=== PATIENT | female | born 1935 | race American Indian/Alaskan Native ===

== ENCOUNTER 2020-03-30 00:56 | Observation (INO) | payer MEDICARE ==
--- NOTE | 2020-03-30 01:40 | Emergency Department Report ---
HPI - General Chief Complaint: Altered Mental Status Time Seen by Provider: 03/30/20 01:10 - HPI HPI: This is an 85-year-old -Colomb[place] female presents to the emergency department via EMS from home with complaint of altered mental status. The patie nt has a history of hypertension, high cholesterol, previous breast cancer, and has Alzheimer's dementia. The patient is a poor historian and much of the information has been obtained by the patient's daughter, who is at bedside. The patient is usually AAO x1-2, but conversive. She does ambulate with a walker. Throughout most of the day the patient has been more fatigued and has been refusing to get out of bed. Lunch was brought her into her room, because she refused to come out to eat, but she just nibbled on some of the bread from the sandwich provided. She refused to come out for dinner as well but they eventually made her, and assisted her, to come out for dinner. While sitting at the dinner table the patient ate very little and appeared to slump over in her chair. At around 11 PM this evening another family member felt that she was even less responsive and EMS/911 was called. Patient did not receive any treatment for symptoms prior to presentation today. No sick contacts at home. Patient follows up with [facility] for primary care. ED Past Medical Hx - Past Medical History Previous Medical History?: Yes Hx Hypertension: Yes Hx of Cancer: Yes (Bilateral Breast Cancer) Hx Dementia: Yes Additional medical history: Brain Tumor, Bilateral Breast cancer 2013 and 2015 - Surgical History Past Surgical History?: Yes Additional Surgical History: Brain Tumor - Social History Smoking Status: Former Smoker - Medications Home Medications: Home Medications Medication Instructions Recorded Confirmed Last Taken Type Aspirin [Aspirin BABY CHEW TAB] 81 mg PO QDAY 03/30/20 03/30/20 Unknown History AtorvaSTATin [Lipitor] 40 mg PO QHS 03/30/20 03/30/20 Unknown History Letrozole (Nf) [Femara (Nf)] 2.5 mg PO QDAY 03/30/20 03/30/20 Unknown History Triamter/Hctz 37.5-25 mg 1 tab PO QDAY 03/30/20 03/30/20 Unknown History [Maxzide-25] ED Review of Systems ROS: Stated complaint: AMS Other details as noted in HPI Comment: Unobtainable due to pts medical conditions Physical Exam - Physical Exam Vital Signs: Vital Signs 03/30/20 01:18 Pulse Rate 81 Respiratory 20 Rate Blood Pressure 133/77 O2 Sat by Pulse 98 Oximetry Physical Exam: GENERAL: The patient is well-developed well-nourished. HENT: Normocephalic. Atraumatic. Patient has moist mucous membranes. EYES: Extraocular motions are intact. NECK: Supple. Trachea is midline. CHEST/LUNGS: Clear to auscultation. There is no respiratory distress noted. HEART/CARDIOVASCULAR: Regular. There is no tachycardia. There is no murmur. ABDOMEN: Abdomen is soft, nontender. Patient has normal bowel sounds. SKIN: Skin is warm and dry. NEURO: Patient is sleeping but is easily arousable. Once awake she is confused, AAO x 0. Unable to give me her name. Follows some commands. Withdraws from painful stimuli. MUSCULOSKELETAL: There is no tenderness or deformity. There is no limitation range of motion. ED Course Vital Signs 03/30/20 01:18 Pulse Rate 81 Respiratory 20 Rate Blood Pressure 133/77 O2 Sat by Pulse 98 Oximetry ED Medical Decision Making - Lab Data Result diagrams: 03/30/20 01:43 03/30/20 01:43 - EKG Data -: EKG Interpreted by Sd EKG shows normal: sinus rhythm, axis, intervals, QRS complexes, ST-T waves Rate: normal - EKG Data When compared to previous EKG there are: previous EKG unavailable Interpretation: normal EKG - Radiology Data Radiology results: report reviewed CT HEAD WITHOUT CONTRAST INDICATION: Altered mental status TECHNIQUE: Axial slices were obtained through the head. Coronal and sagittal reformatted images were obtained. COMPARISON: None available. FINDINGS: There is no intracranial hemorrhage or extra-axial fluid collection. There is deep cortical and cerebellar atrophy. There is no mass lesion or midline shift. No acute territorial infarct is identified. There is been prior right craniotomy Bone windows demonstrate no acute osseous abnormality. Paranasal sinuses and mastoid air cells appear clear. TECHNIQUE: All CT scans at this facility use dose modulation, iterative reconstruction, automated exposure control, weight based dosing, when appropriate, to reduce radiation dose to as low as reasonably achie vable. IMPRESSION: 1. No acute intracranial abnormality. 2. There is atrophy. There has been prior right craniotomy. - Medical Decision Making Family says that this patient has been increasingly lethargic throughout the day. She was arousable but did not want to leave her bed and had to be coaxed into eating and drinking and into her activities of daily living. At one point at dinner the patient was found slumped over but was once again arousable. Shortly afterwards the patient appeared unresponsive and EMS was called. Upon arrival to the emergency department the patient is sleeping but is arousable. However, once awake, the patient is confused, AAO x0. CT scan of the head without contrast does not show any acute process including any ischemia or large territorial infarct. Patient's labs shows a urinary tract infection and acute renal failure. Creatinine is 1.8 but the GFR is close to 30. No previous labs at our hospital, but her daughter did not mention any chronic kidney disease. Patient was given some IV fluid resuscitation and a dose of IV insulin for her urinary tract infection. She will be admitted to the hospital for further evaluation and treatment was accepted for admission by the hospitalist, Dr. Blum. Critical Care Time: No Critical care attestation.: If time is entered above; I have spent that time in minutes in the direct care of this critically ill patient, excluding procedure time. ED Disposition Clinical Impression: Altered mental status Qualifiers: Altered mental status type: unspecified Qualified Code(s): R41.82 - Altered mental status, unspecified Acute renal failure Qualifiers: Acute renal failure type: unspecified Qualified Code(s): N17.9 - Acute kidney failure, unspecified UTI (urinary tract infection) Qualifiers: Urinary tract infection type: acute cystitis Hematuria presence: without hematuria Qualified Code(s): N30.00 - Acute cystitis without hematuria Disposition: OP ADMIT IP TO THIS HOSP Is pt being admited?: Yes Condition: Fair Referrals: PRIMARY CARE, [Primary Care Provider] - 3-5 Days Time of Disposition: 04:26
[2020-03-30 02:18] LABS: Basophils # (Auto) 0.1 K/mm3 (0.0-0.1); Basophils % (Auto) 0.7 % (0.0-1.8); Eosinophils % (Auto) 0.2 % (0.0-4.3); Hematocrit 40.2 % (30.3-42.9); Hemoglobin 12.6 gm/dl (10.1-14.3); Lymphocytes # (Auto) 1.9 K/mm3 (1.2-5.4); Lymphocytes % (Auto) 16.1 % (13.4-35.0); Mean Corpuscular HGB Conc 31 % (30-34); Monocytes # (Auto) 0.9 K/mm3 (0.0-0.8); Monocytes % (Auto) 7.9 % (0.0-7.3); Platelet Count 331 K/mm3 (140-440); Red Blood Count 5.83 M/mm3 (3.65-5.03); Red Cell Distribution Width 15.9 % (13.2-15.2)
--- NOTE | 2020-03-30 02:19 | Cat Scan Report ---
CT HEAD WITHOUT CONTRAST INDICATION: Altered mental status TECHNIQUE: Axial slices were obtained through the head. Coronal and sagittal reformatted images were obtained. COMPARISON: None available. FINDINGS: There is no intracranial hemorrhage or extra-axial fluid collection. There is deep cortical and cereb ellar atrophy. There is no mass lesion or midline shift. No acute territorial infarct is identified. There is been prior right craniotomy Bone windows demonstrate no acute osseous abnormality. Paranasal sinuses and mastoid air cells appear clear. TECHNIQUE: All CT scans at this facility use dose modulation, iterative reconstruction, automated ex posure control, weight based dosing, when appropriate, to reduce radiation dose to as low as reasonab ly achievable. IMPRESSION: 1. No acute intracranial abnormality. 2. There is atrophy. There has been prior right craniotomy. Signer Name: Saroj Rodriguez MD Signed: 03/30/2020 2:14 AM Workstation Name: [id number]
[2020-03-30 02:22] LABS: Mean Corpuscular Volume 69 fl (79-97)
[2020-03-30 02:45] LABS: Alanine Aminotransferase 8 units/L (7-56); Albumin 3.7 g/dL (3.9-5); BUN/Creatinine Ratio 16; Blood Urea Nitrogen 28 mg/dL (7-17); Calcium 9.2 mg/dL (8.4-10.2); Hemolysis Index 8
[2020-03-30 02:46] LABS: INR 1.02 (0.87-1.13)
[2020-03-30 02:51] LABS: Amphetamine Screen,Urine PRESUMPTIVE NEGATIVE; Benzodiazepines Screen,Urine PRESUMPTIVE NEGATIVE; Cannabinoid Screen,Urine PRESUMPTIVE NEGATIVE; Cocaine Screen,Urine PRESUMPTIVE NEGATIVE; Methadone Screen,Urine PRESUMPTIVE NEGATIVE; Opiate Screen,Urine PRESUMPTIVE NEGATIVE
[2020-03-30 03:15] LABS: Bacteria,Urine 4+ /HPF (Negative); Bilirubin,Urine NEG (Negative); Blood,Urine SM (Negative); Color,Urine Yellow (Yellow); Mucus,Urine FEW /HPF
[2020-03-30] MEDS ORDERED: cefTRIAXone/NS 1 GM/50 ML 1 GM/50 ML BAG IV ONE (03:23)
[2020-03-30] MEDS ORDERED: SODIUM CHLORIDE 0.9% 500 ML 500 ML IV ONE (03:23)
[2020-03-30] MEDS ORDERED: MAGNESIUM HYDROXIDE (MOM) ORAL LIQD UDC PO PRN (04:51)
[2020-03-30] MEDS ORDERED: ONDANSETRON 4 MG/2 ML INJ IV PRN (04:51)
[2020-03-30] MEDS ORDERED: ACETAMINOPHEN 325 MG TAB PO PRN (04:51)
[2020-03-30] MEDS ORDERED: SODIUM CHLORIDE 0.9% 1000 ML 1,000 ML IV SCH (05:00)
--- NOTE | 2020-03-30 05:00 | History and Physical Report ---
History of Present Illness Date of examination: 03/30/20 Date of admission: 03/30/2020 Chief complaint: Altered Mental Status History of present illness: 85-year-old -Macanese female with known history of dementia, breast cancer, hyperlipidemia and hypertension was brought into the emergency room today for altered mental status. Patient is a poor historian and most of the information was obtained from the emergency room physician as family members were not available. Patient was said to have had decreased oral intake lately. She was said to have appeared slumped over on a chair sometime this evening and became less responsive and thereafter EMS was called. There has been no history of any illness prior to current symptoms. There has been no history of travel. Work-up in the emergency room today shows urinary tract infection on the urinalysis. BUN and creatinine was also elevated. CT scan of the head was unremarkable. Patient is being admitted for UTI, altered mental status and acute kidney injury. Past History Past Medical History: hypertension, hyperlipidemia, other (Dementia,H/O Breast ca,h/O Brain tumor.) Past Surgical History: Other (Jhonny. Mastetctomy) Social history: smoking (Former smoker) Family history: no significant family history Medications and Allergies Allergies Allergy/AdvReac Type Severity Reaction Status Date / Time No Known Allergies Allergy Unverified 03/30/20 01:08 Home Medications Medication Instructions Recorded Confirmed Last Taken Type Aspirin [Aspirin BABY CHEW TAB] 81 mg PO QDAY 03/30/20 03/30/20 Unknown History AtorvaSTATin [Lipitor] 40 mg PO QHS 03/30/20 03/30/20 Unknown History Letrozole (Nf) [Femara (Nf)] 2.5 mg PO QDAY 03/30/20 03/30/20 Unknown History Triamter/Hctz 37.5-25 mg 1 tab PO QDAY 03/30/20 03/30/20 Unknown History [Maxzide-25] Active Meds: Active Medications Acetaminophen (Tylenol) 650 mg PO Q4H PRN PRN Reason: Pain MILD(1-3)/Fever >100.5/VILLANUEVA Heparin Sodium (Porcine) (Heparin) 5,000 unit SUB-Q Q8HR YOLANDA Sodium Chloride (Nacl 0.9% 1000 Ml) 1,000 mls @ 125 mls/hr IV DIRECT YOLANDA Magnesium Hydroxide (Milk Of Magnesia) 30 ml PO Q4H PRN PRN Reason: Constipation Ondansetron HCl (Zofran) 4 mg IV Q8H PRN PRN Reason: Nausea And Vomiting Sodium Chloride (Sodium Chloride Flush Syringe 10 Ml) 10 ml IV BID YOLANDA Sodium Chloride (Sodium Chloride Flush Syringe 10 Ml) 10 ml IV PRN PRN PRN Reason: LINE FLUSH Review of Systems ROS unobtainable: due to mental status Exam - Constitutional Vitals: Temp Pulse Resp BP Pulse Ox 97.6 F 79 20 143/79 98 03/30/20 01:30 03/30/20 03:43 03/30/20 03:43 03/30/20 03:43 03/30/20 03:43 General appearance: Present: no acute distress, well-nourished - EENT Eyes: Present: PERRL, EOM intact. Absent: scleral icterus ENT: hearing intact, clear oral mucosa, dentition normal - Neck Neck: Present: supple, normal ROM - Respiratory Respiratory effort: normal Respiratory: bilateral: CTA - Cardiovascular Rhythm: regular Heart Sounds: Present: S1 & S2. Absent: gallop, systolic murmur, diastolic murmur, rub - Extremities Extremities: no ischemia, pulses intact, pulses symmetrical, No edema, Full ROM Peripheral Pulses: within normal limits - Abdominal General gastrointestinal: Present: soft, non-tender, non-distended, normal bowel sounds, mass - Integumentary Integumentary: Present: clear, warm, dry - Musculoskeletal Musculoskeletal: strength equal bilaterally - Psychiatric Psychiatric: cooperative - Neurologic Neurologic: CNII-XII intact, no focal deficits, moves all extremities HEART Score - HEART Score Troponin: Troponin T < 0.010 ng/mL (0.00-0.029) 03/30/20 01:43 Results - Labs CBC & Chem 7: 03/30/20 01:43 03/30/20 01:43 Labs: Abnormal lab results 03/30/20 03/30/20 03/30/20 Range/Units 01:43 01:43 01:43 WBC 11.8 H (4.5-11.0) K/mm3 RBC 5.83 H (3.65-5.03) M/mm3 MCV 69 L (79-97) fl MCH 22 L (28-32) pg RDW 15.9 H (13.2-15.2) % Pratt % (Auto) 7.9 H (0.0-7.3) % Pratt # (Auto) 0.9 H (0.0-0.8) K/mm3 Seg Neutrophils % 75.1 H (40.0-70.0) % Seg Neutrophils # 8.8 H (1.8-7.7) K/mm3 Sodium 136 L (137-145) mmol/L Carbon Dioxide 20 L (22-30) mmol/L BUN 28 H (7-17) mg/dL Creatinine 1.8 H (0.6-1.2) mg/dL Glucose 123 H (65-100) mg/dL Ammonia 14.0 L (25-60) umol/L Albumin 3.7 L (3.9-5) g/dL Urine WBC (Auto) (0.0-6.0) /HPF 03/30/20 Range/Units 02:09 WBC (4.5-11.0) K/mm3 RBC (3.65-5.03) M/mm3 MCV (79-97) fl MCH (28-32) pg RDW (13.2-15.2) % Pratt % (Auto) (0.0-7.3) % Pratt # (Auto) (0.0-0.8) K/mm3 Seg Neutrophils % (40.0-70.0) % Seg Neutrophils # (1.8-7.7) K/mm3 Sodium (137-145) mmol/L Carbon Dioxide (22-30) mmol/L BUN (7-17) mg/dL Creatinine (0.6-1.2) mg/dL Glucose (65-100) mg/dL Ammonia (25-60) umol/L Albumin (3.9-5) g/dL Urine WBC (Auto) 43.0 H (0.0-6.0) /HPF Assessment and Plan - Patient Problems (1) Altered mental status Current Visit: Yes Status: Acute Plan to address problem: Possibly secondary to a UTI and or dehydration. Patient commenced on IV fluid and empiric IV antibiotics. Will monitor mental status. Patient has a baseline history of dementia. (2) UTI (urinary tract infection) Current Visit: Yes Status: Acute Plan to address problem: Patient placed on empiric IV antibiotics. We await urine culture result. (3) Acute renal failure Current Visit: Yes Status: Acute Plan to address problem: Patient placed on IV fluid. Will monitor BUN and creatinine. We will also place a consult to nephrology for evaluation and further recommendation. Baseline BUN and creatinine is unknown. (4) Hypertension Current Visit: Yes Status: Acute Plan to address problem: We will resume routine home medications and monitor vital signs closely. (5) History of dementia Current Visit: Yes Status: Acute Plan to address problem: We will resume routine home medications. (6) DVT prophylaxis Current Visit: Yes Status: Acute Plan to address problem: Patient placed on subcutaneous heparin. (7) Full code status Current Visit: Yes Status: Acute
--- NOTE | 2020-03-30 10:51 | Event Note ---
Date: 03/30/20 Patient admitted earlier this morning for the management of acute metabolic encephalopathy, JESUS, and UTI. Urine culture is pending, patient is on IV Rocephin. Vital signs were noted. Labs were reviewed. Please continue management as outlined in H&P. Patient is more alert and communicative.
[2020-03-30] MEDS: ASPIRIN 81 MG TAB CHEW PO SCH (11:39)
[2020-03-30] MEDS: HEPARIN 5,000 UNIT/1 ML VIAL SUB-Q SCH ×2 (14:00→22:13)
--- NOTE | 2020-03-30 14:57 | Consultation ---
History of Present Illness - Reason for Consult Consult date: 03/30/20 acute renal failure - History of Present Illness This is a 85 year old female who is admitted for a chief complaint of Altered Mentation and poor appetite. On evaluation, patient was found to have UTI and was placed on IV hydration and IV Rocephin. Patient was also found to have an elevated serum creatinine of 1.8. Baseline serum creatinine unknown. Patient has history of Hypertension, Dementia, Hyperl ipidemia and Breast cancer. We are being consulted for management of this patient's Acute Renal Failure. Past History Past Medical History: hypertension, hyperlipidemia, other (Dementia,H/O Breast ca,h/O Brain tumor.) Past Surgical History: Other (Jhonny. Mastetctomy) Social history: smoking (Former smoker) Family history: no significant family history Medications and Allergies Allergies Allergy/AdvReac Type Severity Reaction Status Date / Time No Known Allergies Allergy Unverified 03/30/20 01:08 Home Medications Medication Instructions Recorded Confirmed Last Taken Type Aspirin [Aspirin BABY CHEW TAB] 81 mg PO QDAY 03/30/20 03/30/20 Unknown History AtorvaSTATin [Lipitor] 40 mg PO QHS 03/30/20 03/30/20 Unknown History Letrozole (Nf) [Femara (Nf)] 2.5 mg PO QDAY 03/30/20 03/30/20 Unknown History Triamter/Hctz 37.5-25 mg 1 tab PO QDAY 03/30/20 03/30/20 Unknown History [Maxzide-25] Active Meds: Active Medications Acetaminophen (Tylenol) 650 mg PO Q4H PRN PRN Reason: Pain MILD(1-3)/Fever >100.5/VILLANUEVA Aspirin (Baby Aspirin) 81 mg PO QDAY [facility] Last Admin: 03/30/20 11:39 Dose: 81 mg Documented by: Atorvastatin Calcium (Lipitor) 40 mg PO QHS [facility] Heparin Sodium (Porcine) (Heparin) 5,000 unit SUB-Q Q8HR YOLANDA Sodium Chloride (Nacl 0.9% 1000 Ml) 1,000 mls @ 125 mls/hr IV DIRECT YOLANDA Last Admin: 03/30/20 11:30 Dose: 125 mls/hr Documented by: Ceftriaxone Sodium (Rocephin/Ns 1 Gm/50 Ml) 1 gm in 50 mls @ 100 mls/hr IV QHS [facility]; Protocol Magnesium Hydroxide (Milk Of Magnesia) 30 ml PO Q4H PRN PRN Reason: Constipation Ondansetron HCl (Zofran) 4 mg IV Q8H PRN PRN Reason: Nausea And Vomiting Sodium Chloride (Sodium Chloride Flush Syringe 10 Ml) 10 ml IV BID YOLANDA Last Admin: 03/30/20 11:30 Dose: 10 ml Documented by: Sodium Chloride (Sodium Chloride Flush Syringe 10 Ml) 10 ml IV PRN PRN PRN Reason: LINE FLUSH Review of Systems ROS unobtainable: due to mental status Exam - Vital Signs Vital signs: Vital Signs Pulse Resp BP Pulse Ox 81 20 133/77 98 03/30/20 01:18 03/30/20 01:18 03/30/20 01:18 03/30/20 01:18 - General Appearance General appearance: well-developed, fatigue EENT: ATNC, PERRL, hearing intact, vision intact Neck: Present: neck supple, trachea midline Respiratory: Decreased Breath Sounds Heart: S1S2 Gastrointestinal: Present: normoactive bowel sounds Integumentary: warm and dry Neurologic: confused, other (Awake but confused) Musculoskeletal: Present: other (No edema) Results - Lab Results 03/30/20 01:43 03/30/20 01:43 Most recent lab results Calcium 9.2 mg/dL (8.4-10.2) 03/30/20 01:43 Assessment and Plan Assessment: Acute Renal Failure likely secondary to Prerenal Etiology with poor oral intake: UTI: Dementia: AMS: Plan: -Obtain renal ultrasound to r/o obstruction -Obtain urine lytes and protein labs -Continue on IV hydration with NS@ 125 ml/hr -Avoid nephrotoxic agents -Renally dose medications -Monitor I/O's -Obtain daily weights -Monitor renal function closely
[2020-03-30] MEDS: cefTRIAXone/NS 1 GM/50 ML 1 GM/50 ML BAG IV SCH (22:13)
--- NOTE | 2020-03-30 22:48 | Ultrasound Report ---
ULTRASOUND RENAL INDICATION / CLINICAL INFORMATION: renal failure. COMPARISON: None available. FINDINGS: RIGHT KIDNEY: Length = 10.2 cm. - Echogenicity: Increased echogenicity. - Cortical Thickness: Cortical thinning. - Hydronephrosis: None. - Cyst or mass: 4.6 cm cyst at the interpolar region with thin internal septation. No abnormal vascul ar flow. - Stones: None seen. LEFT KIDNEY: Length = 9.4 cm. - Echogenicity: Increased echogenicity. - Cortical Thickness: Borderline thin cortex. - Hydronephrosis: None. - Cyst or mass: Simple cyst in the superior pole measuring 2.8 cm. Smaller simple cysts at the interp olar region measuring up to 1.3 cm. - Stones: None seen. URINARY BLADDER: No significant abnormality. FREE FLUID: None. ADDITIONAL FINDINGS: None. IMPRESSION: 1. Minimally complex right renal cyst and simple left renal cysts. No suspicious features. 2. Findings suggestive of chronic bilateral medical renal disease. Signer Name: Melquiades Nix MD Signed: 03/30/2020 10:43 PM Workstation Name: [id number]
[2020-03-31] MEDS: HEPARIN 5,000 UNIT/1 ML VIAL SUB-Q SCH ×5 (06:27→22:26)
[2020-03-31 08:20] LABS: INR 0.99 (0.87-1.13)
[2020-03-31 08:23] LABS: Calcium 8.9 mg/dL (8.4-10.2)
[2020-03-31 08:38] LABS: Creatinine,Urine 194.6 mg/dL (0.1-20.0); Protein/Creatinine Ratio,Urine 0.16
[2020-03-31] MEDS: ASPIRIN 81 MG TAB CHEW PO SCH (09:43)
--- NOTE | 2020-03-31 10:21 | Progress Note ---
Assessment and Plan Acute Renal Failure likely secondary to Prerenal Etiology with poor oral intake: UTI: Dementia: AMS: Plan: -Cr is trending down -will decrease NS to 50 cc/h -will start Bictra 30 cc TID -renal US -ve for obstruction -Avoid nephrotoxic agents -Renally dose medications -Monitor I/O's -Obtain daily weights -Monitor renal function closely Elieser Shaffer MD [phone] Subjective Date of service: 03/31/20 Principal diagnosis: JESUS Interval history: no overnight events, no family at bedside Objective - Vital Signs Vital signs: Vital Signs - 12hr 03/31/20 03/31/20 03/31/20 03:05 04:05 04:37 Temperature 98.1 F Pulse Rate 67 Respiratory 18 18 16 Rate Blood Pressure 150/71 O2 Sat by Pulse 91 Oximetry - General Appearance General appearance: well-developed EENT: ATNC, PERRL, mucous membranes dry Neck: no JVD, no carotid bruit Respiratory: Present: Clear to Ascultation. Absent: Rales, Ronchi Cardiology: regular, S1S2 Gastrointestinal: normoactive bowel sounds, no tenderness, no distended, no masses, no guarding Integumentary: no rash, warm and dry Neurologic: no focal deficit, no asterixis Musculoskeletal: other (no edema in BLE) Psychiatric: cooperative - Lab 03/30/20 01:43 03/31/20 06:34 Most recent lab results Calcium 8.9 mg/dL (8.4-10.2) 03/31/20 06:34 Urine Creatinine 194.6 mg/dL (0.1-20.0) H 03/31/20 06:30 Urine Sodium 51 mmol/L 03/31/20 06:30 Urine Total Protein 31 mg/dL (5-11.8) H 03/31/20 06:30 Medications & Allergies - Medications Allergies/Adverse Reactions: Allergies No Known Allergies Allergy (Unverified 03/30/20 01:08) Home Medications: Home Medications Medication Instructions Recorded Confirmed Last Taken Type Aspirin [Aspirin BABY CHEW TAB] 81 mg PO QDAY 03/30/20 03/30/20 Unknown History AtorvaSTATin [Lipitor] 40 mg PO QHS 03/30/20 03/30/20 Unknown History Letrozole (Nf) [Femara (Nf)] 2.5 mg PO QDAY 03/30/20 03/30/20 Unknown History Triamter/Hctz 37.5-25 mg 1 tab PO QDAY 03/30/20 03/30/20 Unknown History [Maxzide-25] Active Medications: Generic Name Dose Route Start Last Admin Trade Name Freq PRN Reason Stop Dose Admin Acetaminophen 650 mg 03/30/20 04:51 03/31/20 03:05 Tylenol PO 650 mg Q4H PRN Administration Pain MILD(1-3)/Fever >100.5/VILLANUEVA Aspirin 81 mg 03/30/20 11:00 03/31/20 09:43 Baby Aspirin PO 81 mg QDAY YOLANDA Administration Atorvastatin Calcium 40 mg 03/30/20 22:00 03/30/20 22:13 Lipitor PO 40 mg QHS YOLANDA Administration Heparin Sodium (Porcine) 5,000 unit 03/30/20 06:00 03/31/20 09:43 Heparin SUB-Q 5,000 unit Q8HR YOLANDA Administration Sodium Chloride 1,000 mls @ 125 mls/hr 03/30/20 05:00 03/30/20 11:30 Nacl 0.9% 1000 Ml IV 125 mls/hr DIRECT YOLANDA Administration Ceftriaxone Sodium 1 gm in 50 mls @ 100 mls/hr 03/30/20 22:00 03/30/20 22:13 Rocephin/Ns 1 Gm/50 Ml IV 100 mls/hr QHS YOLANDA Administration Protocol Magnesium Hydroxide 30 ml 03/30/20 04:51 Milk Of Magnesia PO Q4H PRN Constipation Ondansetron HCl 4 mg 03/30/20 04:51 03/30/20 22:23 Zofran IV 4 mg Q8H PRN Administration Nausea And Vomiting Sodium Chloride 10 ml 03/30/20 10:00 03/31/20 09:49 Sodium Chloride Flush Syringe 10 Ml IV 10 ml BID YOLANDA Administration Sodium Chloride 10 ml 03/30/20 04:51 Sodium Chloride Flush Syringe 10 Ml IV PRN PRN LINE FLUSH
--- NOTE | 2020-03-31 11:27 | Discharge Summary ---
Providers - Providers Date of Admission: 03/30/20 04:51 Date of discharge: 03/31/20 Attending physician: ROSALIA EDWARDS MD 03/30/20 04:51 Consult to Physician [CONS] Routine Comment: Consulting Provider: THOMPSON CANTRELL Physician Instructions: Reason For Exam: JESUS 03/30/20 11:00 Occupational Therapy Evaluate and Treat [CONS] Routine Comment: Reason For Exam: ADL Physical Therapy Evaluation and Treat [CONS] Routine Comment: Reason For Exam: weakness Primary care physician: CENTRIFUGE SEPARATOR TENDER Hospitalization Reason for admission: Acute metabolic encephalopathy, JESUS Condition: Stable Hospital course: 85-year-old -Congolese female with known history of dementia, breast cancer, hyperlipidemia and hypertension was brought into the emergency room today for altered mental status. Patient is a poor historian and most of the information was obtained from the emergency room physician as family members were not available. Patient was said to have had decreased oral intake lately. She was said to have appeared slumped over on a chair sometime this evening and became less responsive and thereafter EMS was called. There has been no history of any illness prior to current symptoms. There has been no history of travel. Work-up in the emergency room today shows urinary tract infection on the ur inalysis. BUN and creatinine was also elevated. CT scan of the head was unremarkable. Patient is being admitted for UTI, altered mental status and acute kidney injury. Patient was admitted to the floor and was treated with IV Rocephin and IV fluids. Patient's symptoms improved. Patient was alert and cooperative. Patient is demented. Urine culture showed contaminants. JESUS resolved and haley ent is doing well. Patient was evaluated by PT OT and recommend home health. Patient has a rolling walker at home. Patient discharged home with home health. I discontinued her HCTZ and started her on amlodipine. Patient was hemodynamically stable at the time of discharge. Appropriate medications were reconciled at the time of discharge. Patient's questions and concerns were addressed at the bedside. Disposition: - TO HOME OR SELFCARE Time spent for discharge: 34 minutes - Discharge Diagnoses (1) Metabolic encephalopathy Status: Acute (2) Acute renal failure Status: Acute (3) UTI (urinary tract infection) Status: Ruled-out Core Measure Documentation - Palliative Care Palliative Care/ Comfort Measures: Not Applicable - Core Measures Any of the following diagnoses?: none Exam - Physical Exam Narrative exam: Not in cardiopulmonary distress. The patient appeared well nourished and normally developed. Vital signs as documented. Head exam is unremarkable. No scleral icterus . Neck is without jugular venous distension, thyromegaly, or carotid bruits. Lungs are clear to auscultation. Cardiac exam reveals regular rate and Rhythm. Abdominal exam reveals normal bowel sounds, nontender, no organomegaly. Extremities are nonedematous and both femoral and pedal pulses are normal. GOLD FRAME ASSEMBLER: Alert. No focal weakness. - Constitutional Vitals: Temp Pulse Resp BP Pulse Ox 98.1 F 67 16 150/71 91 03/31/20 04:37 03/31/20 04:37 03/31/20 04:37 03/31/20 04:37 03/31/20 04:37 Plan Activity: no restrictions Weight Bearing Status: Full Weight Bearing Diet: regular Follow up with: PRIMARY CAREMD [Primary Care Provider] - 3-5 Days ESTHER KEMP MD [Staff Physician] - 7 Days Prescriptions: amLODIPine 10 mg PO DAILY #30 tab
[2020-03-31] MEDS: BICITRA ORAL LIQD 30ML PO SCH ×2 (12:11→20:30)
[2020-03-31] MEDS: cefTRIAXone/NS 1 GM/50 ML 1 GM/50 ML BAG IV SCH (22:28)
[2020-04-01 05:01] VITALS: BP 148/59
[2020-04-01] MEDS: HEPARIN 5,000 UNIT/1 ML VIAL SUB-Q SCH (05:41)
--- NOTE | 2020-04-01 07:47 | Progress Note ---
Assessment and Plan Assessment and plan: (1) Altered mental status, metabolic encephalopathy Current Visit: Yes Status: Acute Plan to address problem: -Likely due to dehydration, acute renal failure -Was treated with IV fluids and resolved (2) UTI (urinary tract infection) Current Visit: Yes Status: Acute Plan to address problem: -Urinalysis was suggestive of UTI and was placed on empiric IV Rocephin -Culture is negative and discontinue IV Rocephin (3) Acute renal failure, vasomotor nephropathy Current Visit: Yes Status: Acute Plan to address problem: -Patient was treated with IV fluids and resolved (4) Hypertension Current Visit: Yes Status: Acute Plan to address problem: -Patient was on Maxide at home and I discontinued that and start the patient on amlodipine and currently blood pressure is controlled (5) History of dementia Current Visit: Yes Status: Acute Plan to address problem: We will resume routine home medications. (6) DVT prophylaxis Current Visit: Yes Status: Acute Plan to address problem: Patient placed on subcutaneous heparin. (7) Full code status Current Visit: Yes Status: Acute Disposition; discharge home with home health. - Patient Problems (1) Metabolic encephalopathy Current Visit: Yes Status: Acute (2) Acute renal failure Current Visit: Yes Status: Acute (3) UTI (urinary tract infection) Current Visit: Yes Status: Ruled-out History Interval history: Patient was seen and evaluated this morning. Patient was calm and cooperative. Patient did not have any complaints. Hospitalist Physical - Physical exam Narrative exam: Not in cardiopulmonary distress. The patient appeared well nourished and normally developed. Vital signs as documented. Head exam is unremarkable. No scleral icterus . Neck is without jugular venous distension, thyromegaly, or carotid bruits. Lungs are clear to auscultation. Cardiac exam reveals regular rate and Rhythm. Abdominal exam reveals normal bowel sounds, nontender, no organomegaly. Extremities are nonedematous and both femoral and pedal pulses are normal. LOGGING SUPERINTENDENT: Alert. No focal weakness. - Constitutional Vitals: Temp Pulse Resp BP Pulse Ox 98.5 F 94 H 18 148/59 94 04/01/20 04:45 04/01/20 04:45 04/01/20 04:45 04/01/20 04:45 04/01/20 04:45 General appearance: Present: no acute distress, well-nourished HEART Score - HEART Score Troponin: Troponin T < 0.010 ng/mL (0.00-0.029) 03/30/20 01:43 Results - Labs CBC & Chem 7: 03/30/20 01:43 03/31/20 06:34 Labs: Laboratory Last Values WBC 11.8 K/mm3 (4.5-11.0) H 03/30/20 01:43 RBC 5.83 M/mm3 (3.65-5.03) H 03/30/20 01:43 Hgb 12.6 gm/dl (10.1-14.3) 03/30/20 01:43 Hct 40.2 % (30.3-42.9) 03/30/20 01:43 MCV 69 fl (79-97) L 03/30/20 01:43 MCH 22 pg (28-32) L 03/30/20 01:43 MCHC 31 % (30-34) 03/30/20 01:43 RDW 15.9 % (13.2-15.2) H 03/30/20 01:43 Plt Count 331 K/mm3 (140-440) 03/30/20 01:43 Lymph % (Auto) 16.1 % (13.4-35.0) 03/30/20 01:43 Lee % (Auto) 7.9 % (0.0-7.3) H 03/30/20 01:43 Eos % (Auto) 0.2 % (0.0-4.3) 03/30/20 01:43 Baso % (Auto) 0.7 % (0.0-1.8) 03/30/20 01:43 Lymph # (Auto) 1.9 K/mm3 (1.2-5.4) 03/30/20 01:43 Lee # (Auto) 0.9 K/mm3 (0.0-0.8) H 03/30/20 01:43 Eos # (Auto) 0.0 K/mm3 (0.0-0.4) 03/30/20 01:43 Baso # (Auto) 0.1 K/mm3 (0.0-0.1) 03/30/20 01:43 Seg Neutrophils % 75.1 % (40.0-70.0) H 03/30/20 01:43 Seg Neutrophils # 8.8 K/mm3 (1.8-7.7) H 03/30/20 01:43 PT 13.3 Sec. (12.2-14.9) 03/31/20 07:49 INR 0.99 (0.87-1.13) 03/31/20 07:49 Sodium 138 mmol/L (137-145) 03/31/20 06:34 Potassium 4.0 mmol/L (3.6-5.0) 03/31/20 06:34 Chloride 105.4 mmol/L (98-107) 03/31/20 06:34 Carbon Dioxide 16 mmol/L (22-30) L 03/31/20 06:34 Anion Gap 21 mmol/L 03/31/20 06:34 BUN 22 mg/dL (7-17) H 03/31/20 06:34 Creatinine 1.2 mg/dL (0.6-1.2) 03/31/20 06:34 Estimated GFR 52 ml/min 03/31/20 06:34 BUN/Creatinine Ratio 18 % 03/31/20 06:34 Glucose 85 mg/dL (65-100) 03/31/20 06:34 Calcium 8.9 mg/dL (8.4-10.2) 03/31/20 06:34 Total Bilirubin 0.30 mg/dL (0.1-1.2) 03/30/20 01:43 AST 19 units/L (5-40) 03/30/20 01:43 ALT 8 units/L (7-56) 03/30/20 01:43 Alkaline Phosphatase 98 units/L (35-129) 03/30/20 01:43 Ammonia 14.0 umol/L (25-60) L 03/30/20 01:43 Troponin T < 0.010 ng/mL (0.00-0.029) 03/30/20 01:43 Total Protein 8.0 g/dL (6.3-8.2) 03/30/20 01:43 Albumin 3.7 g/dL (3.9-5) L 03/30/20 01:43 Albumin/Globulin Ratio 0.9 % 03/30/20 01:43 TSH 3.610 mlU/mL (0.270-4.200) 03/30/20 01:43 Urine Color Yellow (Yellow) 03/30/20 02:09 Urine Turbidity Slightly-cloudy (Clear) 03/30/20 02:09 Urine pH 6.0 (5.0-7.0) 03/30/20 02:09 Ur Specific Evans 1.016 (1.003-1.030) 03/30/20 02:09 Urine Protein 30 mg/dl mg/dL (Negative) 03/30/20 02:09 Urine Glucose (UA) Neg mg/dL (Negative) 03/30/20 02:09 Urine Ketones Neg mg/dL (Negative) 03/30/20 02:09 Urine Blood Sm (Negative) 03/30/20 02:09 Urine Nitrite Neg (Negative) 03/30/20 02:09 Urine Bilirubin Neg (Negative) 03/30/20 02:09 Urine Urobilinogen 4.0 mg/dL (<2.0) 03/30/20 02:09 Ur Leukocyte Esterase Mod (Negative) 03/30/20 02:09 Urine WBC (Auto) 43.0 /HPF (0.0-6.0) H 03/30/20 02:09 Urine RBC (Auto) 6.0 /HPF (0.0-6.0) 03/30/20 02:09 U Epithel Cells (Auto) 3.0 /HPF (0-13.0) 03/30/20 02:09 Urine Bacteria (Auto) 4+ /HPF (Negative) 03/30/20 02:09 Urine Mucus Few /HPF 03/30/20 02:09 Urine Eosinophils Few (None Seen) 03/31/20 06:30 Urine Creatinine 194.6 mg/dL (0.1-20.0) H 03/31/20 06:30 Protein/Creatinin Ratio 0.16 03/31/20 06:30 Urine Sodium 51 mmol/L 03/31/20 06:30 Urine Total Protein 31 mg/dL (5-11.8) H 03/31/20 06:30 Urine Opiates Screen Presumptive negative 03/30/20 02:09 Urine Methadone Screen Presumptive negative 03/30/20 02:09 Ur Barbiturates Screen Presumptive negative 03/30/20 02:09 Ur Phencyclidine Scrn Presumptive negative 03/30/20 02:09 Ur Amphetamines Screen Presumptive negative 03/30/20 02:09 U Benzodiazepines Scrn Presumptive negative 03/30/20 02:09 Urine Cocaine Screen Presumptive negative 03/30/20 02:09 U Marijuana (THC) Screen Presumptive negative 03/30/20 02:09 Drugs of Abuse Note Disclamer 03/30/20 02:09 Plasma/Serum Alcohol < 0.01 % (0-0.07) 03/30/20 01:43 Microbiology: Microbiology 03/30/20 02:09 Urine,Clean Catch Urine Culture - Preliminary Murray/IV: Voiding Method Diaper IV Catheter Type [Right Peripheral IV Antecubital] Active Medications - Current Medications Current Medications: Generic Name Dose Route Start Last Admin Trade Name Freq PRN Reason Stop Dose Admin Acetaminophen 650 mg 03/30/20 04:51 03/31/20 03:05 Tylenol PO 650 mg Q4H PRN Administration Pain MILD(1-3)/Fever >100.5/VILLANUEVA Aspirin 81 mg 03/30/20 11:00 03/31/20 09:43 Baby Aspirin PO 81 mg QDAY YOLANDA Administration Atorvastatin Calcium 40 mg 03/30/20 22:00 03/31/20 22:26 Lipitor PO 40 mg QHS YOLANDA Administration Citric Acid/Sodium Citrate 30 ml 03/31/20 12:00 03/31/20 20:30 Bicitra PO 30 ml TID YOLANDA Administration Heparin Sodium (Porcine) 5,000 unit 03/30/20 06:00 04/01/20 05:41 Heparin SUB-Q 5,000 unit Q8HR YOLANDA Administration Ceftriaxone Sodium 1 gm in 50 mls @ 100 mls/hr 03/30/20 22:00 03/31/20 22:28 Rocephin/Ns 1 Gm/50 Ml IV Not Given QHS [facility] Protocol Magnesium Hydroxide 30 ml 03/30/20 04:51 Milk Of Magnesia PO Q4H PRN Constipation Ondansetron HCl 4 mg 03/30/20 04:51 03/30/20 22:23 Zofran IV 4 mg Q8H PRN Administration Nausea And Vomiting Sodium Chloride 10 ml 03/30/20 10:00 03/31/20 22:27 Sodium Chloride Flush Syringe 10 Ml IV 10 ml BID YOLANDA Administration Sodium Chloride 10 ml 03/30/20 04:51 Sodium Chloride Flush Syringe 10 Ml IV PRN PRN LINE FLUSH Nutrition/Malnutrition Assess - Dietary Evaluation Nutrition/Malnutrition Findings: Nutrition Notes Start: 03/31/20 16: 19 Freq: Status: Active Protocol: Document 03/31/20 16:20 AL (Rec: 03/31/20 16:29 AL [email or web address]) Co-Sign 03/31/20 16:20 MK Nutrition Notes 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 No Tulio score in chart. RN reports pt eats 50% of meals and appetite is poor. Burn Absent Trauma Absent Current % PO Fair (50-74%) Minimum of two criteria No physical signs of malnutrition #1 Nutrition Diagnosis Predicted suboptimal energy intake Etiology AMS As Evidenced by Signs and Symptoms pt eats 50% of meals Is patient on ventilator? No Is Patient Ambulatory and/or Out of Bed No REE-(Harris-St. Jeor-confined to bed) 1123.716 Calculation Used for Recommendations Harris-St Jeor Additional Notes Pro: 48-58 g Pro/day (1-1.2 g/ kg AdBW) Fluids: 1 ml/kcal Nutrition Intervention Change Diet Order: Continue Goal #1 Meet 75% of total energy and protein needs Anticipated Discharge Needs: Cardiac Diet Follow-Up By: 04/02/20 Additional Comments FU for intakes
[2020-04-01] MEDS: ASPIRIN 81 MG TAB CHEW PO SCH (09:10)
[2020-04-01] MEDS: BICITRA ORAL LIQD 30ML PO SCH (09:10)
--- NOTE | 2020-04-01 13:03 | Progress Note ---
Assessment and Plan Assessment: Acute Renal Failure likely secondary to Prerenal Etiology with poor oral intake: UTI: Dementia: AMS: Plan: -Renal labs reviewed. Serum creatinine trend down to 1.2 today from 1.8 yesterday -Obtain renal ultrasound to r/o obstruction -Continue on IV hydration with NS@ 125 ml/hr -Avoid nephrotoxic agents -Renally dose medications -Monitor I/O's -Obtain daily weights -Monitor renal function closely Subjective Date of service: 04/01/20 Principal diagnosis: JESUS Objective - Vital Signs Vital signs: Vital Signs - 12hr 04/01/20 04:45 Temperature 98.5 F Pulse Rate 94 H Respiratory 18 Rate Blood Pressure 148/59 O2 Sat by Pulse 94 Oximetry - Lab 03/30/20 01:43 03/31/20 06:34 Most recent lab results Calcium 8.9 mg/dL (8.4-10.2) 03/31/20 06:34 Urine Creatinine 194.6 mg/dL (0.1-20.0) H 03/31/20 06:30 Urine Sodium 51 mmol/L 03/31/20 06:30 Urine Total Protein 31 mg/dL (5-11.8) H 03/31/20 06:30 Medications & Allergies - Medications Allergies/Adverse Reactions: Allergies No Known Allergies Allergy (Unverified 03/30/20 01:08) Home Medications: Home Medications Medication Instructions Recorded Confirmed Last Taken Type Aspirin [Aspirin BABY CHEW TAB] 81 mg PO QDAY 03/30/20 03/30/20 Unknown History AtorvaSTATin [Lipitor] 40 mg PO QHS 03/30/20 03/30/20 Unknown History Letrozole (Nf) [Femara (Nf)] 2.5 mg PO QDAY 03/30/20 03/30/20 Unknown History amLODIPine 10 mg PO DAILY #30 tab 03/31/20 Unknown Rx
== END 2020-04-01 12:30 | disposition home or self-care (01) ==
LOC: ED 00:56 → 3A 04:51
PROVIDERS: ADMIT Internal Medicine Geriatric Medicine; ATTEND Internal Medicine
DX: G93.41 Metabolic encephalopathy (principal); R41.82 Altered mental status, unspecified; N30.00 Acute cystitis without hematuria; E78.5 Hyperlipidemia, unspecified; N17.9 Acute kidney failure, unspecified; I10 Essential (primary) hypertension; F03.90 Unspecified dementia, unspecified severity, without behavioral disturbance, psychotic disturbance, mood disturbance, and anxiety; Z85.3 Personal history of malignant neoplasm of breast; Z85.841 Personal history of malignant neoplasm of brain; Z87.891 Personal history of nicotine dependence; Z90.13 Acquired absence of bilateral breasts and nipples; Z79.82 Long term (current) use of aspirin; Z79.899 Other long term (current) drug therapy
CPT/HCPCS: 36415; 70450; 76770; 80048; 80053; 80307; 81001; 82140; 82570; 84156; 84300; 84443; 84484; 85025; 85610; 87086; 89050; 93005; 96361; 96365; 96366; 96372; 96375; 97112; 97161; 97165; 99285; A9270; G0378; J0696; J1644; J2405; J7030; J7040; 80320; G0480